=== PATIENT | male | born 1955 | race Caucasian/White ===

== ENCOUNTER 2021-01-28 09:00 | Outpatient (RCR) | payer OTHER, SELFPAY ==
--- NOTE | 2021-01-16 14:33 | PT.OIE ---
Current Diagnoses Dizziness and giddiness (01/16/21) Visit Care Team Role Provider Type Sudeep Beckham MD Attending Provider Physician Referring Provider Specialty: Ear, Nose, Throat Address: [address] [place] [address], [id number] Email: [email or web address] Physical Therapy Initial Evaluation PT-OP-A Visit Information Start: 01/14/21 15:37 Freq: Status: Active Protocol: Document 01/16/21 09:02 MB (Rec: 01/16/21 09:20 MB [id number]) Out-Patient Physical Therapy Visit Information Visit Information Visit Type Initial Evaluation Visit Note Select Visit Start Time 09:02 Visit Stop Time 09:45 Total Visit Minutes 43 Visit Number 1 Evaluation Information Evaluation Date 01/16/21 PT-OP-B Current Condition Start: 01/14/21 15:37 Freq: Status: Active Protocol: Document 01/16/21 09:02 MB (Rec: 01/16/21 09:20 MB [id number]) Current Condition History of Current Condition Onset Date 5 years ago Current Complaints Dizzinesss and hearing loss History of Current Condition Pt states that his hearing has been degrading over the last 5 years. He has decreased hearing and tinnitus in his left ear. He had two brain MRIs and a neck MRI. He reports they were both negative as far as tumor and blood flow. Pt has had four dizzy spells in the last 8 months. Dizzy spells are a few minutes to a few hours. He cannot relate to activities. He is doing a lot of yard work. He does modified P90X exercises. He is not doing a lot of sit ups. Pt reports that he noticed the dizziness 9 months ago. Pt denies pain. 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 PMH includes: tumor removed from top left shoulder, laparascopy left shoulder, prostatectomy d/t prostate CA, and tonsils removed. Pt reports: allergies and no worse dizziness with that, some back pain and possible right elbow issue, stiff neck, some overhead lifting, chiropractic treatment with high velocity manipulations to the neck, back and hips. Pt denies: numbness and tingling, vision changes, ear pressure, history of concussion, anemia and B12 deficiency, weakness, trouble swallowing, eye pressure, jaw problmes. Pt is going to see a neurologist in February about foci found on the MRI. Pt reports white noise, high pitch ringing and pulsating in left ear. Pt has a history of epistaxis, assymmetrical sensorineural hearing loss. Treatment Goals Patient/Caregiver Goals To see how PT can be helpful for his symptoms PT-OP-C Subjective Start: 01/14/21 15:37 Freq: Status: Active Protocol: Document 01/16/21 09:02 MB (Rec: 01/16/21 09:20 MB [id number]) OP-PT Subjective Patient Comments Patient Comments See history of current condition PT-OP-J Posture/Palpation/Skin Start: 01/14/21 15:37 Freq: Status: Active Protocol: Document 01/16/21 09:02 MB (Rec: 01/16/21 14:32 MB [id number]) Posture Evaluation Comments Posture Comments Standing posture: elevated and rounded shoulders, decreased thoracic and lumbar curvature, right shoulder higher than the left, pt stands with head resting in 3 deg right SB and 3 deg left rotation of cervical spine Palpation Assessment Location Anterior and posterior neck Palpation Details Increased tension left greater than right SCM and upper traps, levator PT-OP-K Range of Motion Start: 01/14/21 15:37 Freq: Status: Active Protocol: Document 01/16/21 09:02 MB (Rec: 01/16/21 14:32 MB [id number]) Cervical Spine Range of Motion Cervical Spine Active Testing Position Standing Flexion 50 Extension 36 Rotation Left 35 Rotation Right 60 Shoulder Goniometric Range of Motion Shoulder ROM Limitations Comments B active shoulder flexion is normal PT-OP-O Vestibular Start: 01/14/21 15:37 Freq: Status: Active Protocol: Document 01/16/21 09:02 MB (Rec: 01/16/21 14:32 MB [id number]) Vestibular Assessment Visual Testing Smooth Pursuits Horizontal Normal Smooth Pursuits Vertical Normal Saccades Horizontal Normal Saccades Vertical Normal Gaze Evoked Nystagmus With Fixation Negative Thrust Head Positive Bilateral Convergence Test Impaired Spontaneous Nystagmus Negative Positional Testing Roberto-Hallpike Negative Left,Negative Right PT-OP-Q Treatments Start: 01/14/21 15:37 Freq: Status: Active Protocol: Document 01/16/21 09:02 MB (Rec: 01/16/21 14:18 MB [id number]) Self-Care/Home Management Treatment Education Patient Education Body Mechanics,Posture Other Education Initial explanation of reasons for his symptoms after PT eval findings including: possible unstable vestibular lesion such as Meniere's, cervicogenic components, VOR hypofunction. Ed pt in increasing non-caffeinated fluid intake in setting of his symptoms and hypotension, proper sleeping position including use of pillow support and towel roll for cervical support, log roll. Ed in PT course from here: further VOR testing, balance testing, postural training and work. PT-OP-T Assessment and Plan Start: 01/14/21 15:37 Freq: Status: Active Protocol: Document 01/16/21 09:02 MB (Rec: 01/16/21 14:32 MB [id number]) Physical Therapy Assessment Rehab Potential Rehabilitation Potential Fair Evaluation Complexity Number of Personal Factors/Comorbidities 1-2 Number of Body Systems Impaired 1-2 Clinical Presentation at Evaluation Evolving Impairments Impairments Balance,Coordination,Gait, Posture,ROM,Soft Tissue Mobility,Vestibular Goals 2 Computer Tester Goal (LTG) Pt will perform progressive exercises with I including VOR , postural, balance, ROM and strengthening exercises to improve cervical ROM, VOR and balance by 03/18/21. LTG Duration 8 weeks 1 Detention Goal (LTG) Pt will perform WNLs on a standardized balance test to decrease fall risk and allow pt to perform safe mountaineering by 03/18/21. LTG Duration 8 weeks Assessment Summary Assessment Pt is a 65 y/o male presenting with reports of intermittent dizziness, tinnitus, hearing loss and imbalance. His presentation may include possible unstable vestibular lesion such as Meniere's and cervicogenic components to symptoms d/t increased cervical tension and decreased cervical ROM. Also, his BP is low and this could contribute to some symptoms as well. BPPV and orthostatic assessments were negative with BP and HR in LUE: supine 106/ 67, 51; standing 103/68, 49; standing 1' 106/68. He presents with normal rapid supination and pronation B, normal pupil constriction to pen light B, some trouble with rapid toe tap across opposite foot that could be related to wearing jeans, normal smile movement of face and tight thoracic spine. He will benefit from PT for further VOR and balance testing and training, postural training including breathing exercises, flexibility and manual work and other self-care and education as needed. PT feels that his presentation is multi -factorial. He will bring in brain and cervical MRI reports in future treatment dates. PT is curious about these since he says he has follow-up with neurologist about findings of foci. Physical Therapy Plan Frequency and Duration Frequency of Treatment 1-2x/wk Duration of Treatment 8 weeks Plan of Care Start Date 01/16/21 Plan of Care End Date 03/18/21 Therapeutic Interventions Therapeutic Interventions Balance Training,Canalithic Repositioning,Coordination Training,Gait Training,Home Exercise Program,Joint Mobilizations,Manual Therapy, Neuromuscular Re-education, Patient/Caregiver Education, Self-Care/Home Management, Sensory Integration,Soft Tissue Mobilization,Taping, Therapeutic Activities, Therapeutic Exercises, Vestibular Rehabilitation Modalities Cold Pack/Ice Massage,Hot Packs Next Visit Focus/Plan Next Note Type Treatment Note Next Visit Plan Assess VOR via DVA test, balance testing, start postural training
--- NOTE | 2021-01-16 14:33 | PT.OPPOC ---
Physical, Occupational & Speech Therapy At [facility] Current Diagnoses Dizziness and giddiness (01/16/21) Visit Care Team Role Provider Type Sudeep Beckham MD Attending Provider Physician Referring Provider Specialty: Ear, Nose, Throat Address: [address] [place] [address], [id number] Email: [email or web address] Plan Of Care PT-OP-T Assessment and Plan Start: 01/14/21 15:37 Freq: Status: Active Protocol: Document 01/16/21 09:02 MB (Rec: 01/16/21 14:32 MB [id number]) Physical Therapy Assessment Rehab Potential Rehabilitation Potential Fair Evaluation Complexity Number of Personal Factors/Comorbidities 1-2 Number of Body Systems Impaired 1-2 Clinical Presentation at Evaluation Evolving Impairments Impairments Balance,Coordination,Gait, Posture,ROM,Soft Tissue Mobility,Vestibular Goals 2 Telemetry Tech Goal (LTG) Pt will perform progressive exercises with I including VOR , postural, balance, ROM and strengthening exercises to improve cervical ROM, VOR and balance by 03/18/21. LTG Duration 8 weeks 1 Halfway Goal (LTG) Pt will perform WNLs on a standardized balance test to decrease fall risk and allow pt to perform safe mountaineering by 03/18/21. LTG Duration 8 weeks Assessment Summary Assessment Pt is a 65 y/o male presenting with reports of intermittent dizziness, tinnitus, hearing loss and imbalance. His presentation may include possible unstable vestibular lesion such as Meniere's and cervicogenic components to symptoms d/t increased cervical tension and decreased cervical ROM. Also, his BP is low and this could contribute to some symptoms as well. BPPV and orthostatic assessments were negative with BP and HR in LUE: supine 106/ 67, 51; standing 103/68, 49; standing 1' 106/68. He presents with normal rapid supination and pronation B, normal pupil constriction to pen light B, some trouble with rapid toe tap across opposite foot that could be related to wearing jeans, normal smile movement of face and tight thoracic spine. He will benefit from PT for further VOR and balance testing and training, postural training including breathing exercises, flexibility and manual work and other self-care and education as needed. PT feels that his presentation is multi -factorial. He will bring in brain and cervical MRI reports in future treatment dates. PT is curious about these since he says he has follow-up with neurologist about findings of foci. Physical Therapy Plan Frequency and Duration Frequency of Treatment 1-2x/wk Duration of Treatment 8 weeks Plan of Care Start Date 01/16/21 Plan of Care End Date 03/18/21 Therapeutic Interventions Therapeutic Interventions Balance Training,Canalithic Repositioning,Coordination Training,Gait Training,Home Exercise Program,Joint Mobilizations,Manual Therapy, Neuromuscular Re-education, Patient/Caregiver Education, Self-Care/Home Management, Sensory Integration,Soft Tissue Mobilization,Taping, Therapeutic Activities, Therapeutic Exercises, Vestibular Rehabilitation Modalities Cold Pack/Ice Massage,Hot Packs Next Visit Focus/Plan Next Note Type Treatment Note Next Visit Plan Assess VOR via DVA test, balance testing, start postural training Plan of Care Dates Plan of Care Start Date 01/16/21 Plan of Care End Date 03/18/21 Electronically Signed by: Carole Poole PT 01/16/21 3514 Please Sign and Return: I have reviewed this Plan of Care and certify that the skilled therapy services above are required to meet the patient?s needs. Physician Signature Date Printed Name and Credentials Clinical Instructor Signature Printed Name and Credentials
--- OUTSIDE RECORDS SUMMARY | 2021-01-17 08:34 | XMS_ITS | Referral Summary ---
:1955 Author Organization [facility] Address [address] [place] [id number] Care Team Providers Name Role Phone Pcp, Selected Primary Care Provider Unavailable Reason for Referral Consultation (Routine) Status Reason Specialty Diagnoses / Referred By Referred To Procedures Contact Contact Authorized Specialty Physical Diagnoses Dizziness Epistaxis Sudeep Beckham [place] [facility] Santos Rivera MD [facility] Required [address] [place], [place] [address] [address] [place] [phone] Phone: Electronically signed by Sudeep Beckham MD atPhysical Therapy (Routine) Status Reason Specialty Diagnoses / Referred By Referred To Procedures Contact Contact Authorized Diagnoses D[facility] vestibular rehab PHYSICAL THERAPY & [address] [place] [address] REHABILITATION [place], [place] [address] [facility] [place] [address] [place], [place] Phone: [phone] Phone: Electronically signed by Sudeep Beckham MD at Reason for Visit Reason Comments Epistaxis (Nose Bleed) Dizziness Encounter Details Date Type Department Care Team Description 12/09/2020 Office Visit [facility] Sudeep Beckham Dizziness ( Primary Dx); [facility] Ear MD Nicole Epistaxis; Nose and Throat [facility] Asymmetrical sensorineural hearing loss; [place], [place] Left-sided tinnitus [address] [address] [address] [phone] [place], [place] [phone] (Fax) [phone] Allergies Active Allergy Reactions Severity Noted Date Comments Sulfa (Sulfonamide Antibiotics) Shortness of breath High Redness documented as of this encounter (statuses as of 01/14/2021) Medications No known medicationsdocumented as of this encounter (statuses as of 01/14/2021) Active Problems No known active problemsdocumented as of this encounter (statuses as of 01/14/2021) Social History Tobacco Use Types Packs/Day Years Used Date Never Smoker Smokeless Tobacco: Never Used Alcohol Use Drinks/Week oz/Week Comments Yes Alcohol Habits Answer Date Recorded How often do you have a drink containing 4 or more times a w [place] 09/17/2020 alcohol? How many drinks containing alcohol do you have 1 or 2 09/17/2020 on a typical day when you are drinking? How often do you have six or more drinks on one Not asked 09/17/2020 occasion? Sex Assigned at Date Recorded Not on file Job Start Date Occupation Industry Not on file Not on file Not on file documented as of this encounter Last Filed Vital Signs Vital Sign Reading Time Taken Comments Blood Pressure 110/64 12/09/2020 2:57 PM PDT Pulse 52 12/09/2020 2:59 pt states he's an PM PDT occasional runne r Temperature 37.1 ??C (98.7 ??F) 12/09/2020 2:57 PM PDT Respiratory Rate - - Oxygen Saturation 99% 12/09/2020 2:57 PM PDT Inhaled Oxygen - - Concentration Weight 78 kg (172 lb) 12/09/2020 2:57 PM PDT Height 182.9 cm (6' 0.01) 12/09/2020 2:57 PM PDT Body Mass Index 23.32 12/09/2020 2:57 PM PDT documented in this encounter Progress Notes Sudeep Beckham MD - 12/09/2020 3:00 PM PDT Chief Complaint Patient presents with ??? Epistaxis (Nose Bleed) ??? Dizziness 12/09/20: Patient returns for follow-up after right septal cauterization on 10/08, a few brief episodes of mild bleeding within the first 2 weeks, none since, seems to be healed. Possibly a third episode of imbalance, possible vertigo but very difficult for him to describe, no cyst he thinks to lighthe adedness with imbalance, though can last a few hours. No headache at the time, evidently neurology evaluation scheduled in February. PCP ordered MRI, MRA neck and brain from 10/12, reports reviewed for each, all normal, with images from the MRI reviewed, normal including clear IACs. He is debating whether he wants to proceed with vestibular therapy, remains extremely fit and active. Overall feels his balance just is not as good as it used to be. 10/08/20: Patient returns for planned right septal cautery, no interval epistaxis but chronically recurrent in the past. Balance not completely normal, evidently PCP decided to order an MRI which we had discussed last visit, I asked him to make sure it is performed with contrast to be most helpful regarding his progressive hearing loss, although negative in 2018. 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 Outside records including otolaryngology clinic visit 12/15/2017 reviewed, at that point 6 months of left- sided hearing loss and occasional left tinnitus, eventually leadingto brain MRI 12/29/2017 report normal. No sudden change at any point, progressively a harder time onthe left side, more recent audiogram shows marked asymmetry from 08/19/2020 on the left, speech discrimination previously normal in 2018, now 24%. Socially becoming more of an issue. Few episodes of dizziness, no obvious vertigo, one 5 months ago, one 1 week ago, felt better lying down, no syncopeor obvious hearing change at the time or exacerbation of tinnitus. Occasionally the tinnitus on theleft is pulsatile. No other neurologic symptoms. No obvious correlation to salt intake. Also complains of intermittent right-sided epistaxis extremely chronically, history of at least cautery once in the past. No other ENT complaints. Review of Systems Review of Systems Constitutional: Negative. HENT: Positive for hearing loss and nosebleeds. Eyes: Negative. Respiratory: Negative. Cardiovascular: Negative. Gastrointestinal: Negative. Endocrine: Negative. Genitourinary: Negative. Musculoskeletal: Negative. Skin: Negative. Allergic/Immunologic: Negative. Neurological: Positive for dizziness. Hematological: Negative. Psychiatric/Behavioral: Negative. Past Medical History Past Medical History: Diagnosis Date ??? Cancer (CMS/HCC) Prostate ??? High cholesterol Past Surgical History Past Surgical History: Procedure Laterality Date ??? PROSTATECTOMY 2012 ??? SHOULDER SURGERY Left 2005 Family History Family History Problem Relation Age of Onset ??? Prostate cancer Father ??? Prostate cancer Brother ??? Prostate cancer Brother ??? Lymphoma Brother Social History Haile Galarza reports that he has never smoked. He has never used smokeless tobacco. He reports current alcohol use. Medications No current outpatient medications on file prior to visit. No current facility-administered medications on file prior to visit. Allergies Allergies Allergen Reactions ??? Sulfa (Sulfonamide Antibiotics) Shortness of breath Redness Examination: Vitals: 12/09/20 1459 BP: Pulse: (!) 52 Temp: SpO2: CONSTITUTION: General appearance:Well developed and groomed, well nourished. No apparent acute or chronic distress. Ability to communicate: normal. EYES: Ocular Motility: gaze appears conjugate in all positions; no evident nystagmus. EAR, NOSE, MOUTH AND THROAT: Pinnas and External Nose: Normal. Hearing: Conversational speech rarely or never misunderstands words. Nasal Interior: Normal septum, turbinates and mucosa no obvious vessel visible on the right, some scar consistent with prior cautery, no old or new blood seen NEUROLOGIC: Level of consciousness: awake and alert. Orientation: Normal. Mood and affect: normal and appropriate to the situation. Assessment/Plan: 1. Dizziness 2. Epistaxis 3. Asymmetrical sensorineural hearing loss 4. Left-sided tinnitus Good news MRI/MRAs all normal, reassuring but still do not have an answer for his at least vague imbalance, possible recurrent vertigo although not severe. Neurology evaluation reasonable although maybe entirely normal. Pros and cons of vestibular therapy reviewed, after extensive discussion he would like to proceed. He will call with recurrent episodes that may correspond with vertigo, may be a candidate for VNG or further testing in the future. documented in this encounter Miscellaneous Notes Addendum Note - Mavis Olsen RN - 12/09/2020 3:00 PM PDT Addended by: MAVIS OLSEN on: 01/13/2021 04:25 PM Modules accepted: Orders documented in this encounter Plan of Treatment Upcoming Encounters Date Type Specialty Care Team Description 02/28/2021 Office Visit Neurology Jason Glover M [address] [place], [place] [phone] Scheduled Referrals Name Type Priority Associated Order Schedule Diagnoses XTRNL Referral to Outpatient Referral Routine Dizziness 1 Occurrences Physical Therapy Epistaxis starting until 2 documented as of this encounter Visit Diagnoses Diagnosis Dizziness - Primary Dizziness and giddiness Epistaxis Asymmetrical sensorineural hearing loss Sensorineural hearing loss, asymmetrical Left-sided tinnitus Unspecified tinnitus documented in this encounter documented as of this encounter Advance Directives Documents on File Type Date Recorded 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
--- NOTE | 2021-01-23 13:22 | PT.OTN ---
Current Diagnoses Dizziness and giddiness (01/23/21) Physical Therapy Treatment Note PT-OP-A Visit Information Start: 01/14/21 15:37 Freq: Status: Active Protocol: Document 01/23/21 09:02 MB (Rec: 01/23/21 09:44 MB [id number]) Out-Patient Physical Therapy Visit Information Visit Information Visit Type Treatment Note Visit Note Select Visit Start Time 09:02 Visit Stop Time 09:45 Total Visit Minutes 43 Visit Number 2 PT-OP-B Current Condition Start: 01/14/21 15:37 Freq: Status: Active Protocol: Document 01/16/21 09:02 MB (Rec: 01/16/21 09:20 MB [id number]) Current Condition History of Current Condition Onset Date 5 years ago Current Complaints Dizzinesss and hearing loss History of Current Condition Pt states that his hearing has been degrading over the last 5 years. He has decreased hearing and tinnitus in his left ear. He had two brain MRIs and a neck MRI. He reports they were both negative as far as tumor and blood flow. Pt has had four dizzy spells in the last 8 months. Dizzy spells are a few minutes to a few hours. He cannot relate to activities. He is doing a lot of yard work. He does modified P90X exercises. He is not doing a lot of sit ups. Pt reports that he noticed the dizziness 9 months ago. Pt denies pain. 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 PMH includes: tumor removed from top left shoulder, laparascopy left shoulder, prostatectomy d/t prostate CA, and tonsils removed. Pt reports: allergies and no worse dizziness with that, some back pain and possible right elbow issue, stiff neck, some overhead lifting, chiropractic treatment with high velocity manipulations to the neck, back and hips. Pt denies: numbness and tingling, vision changes, ear pressure, history of concussion, anemia and B12 deficiency, weakness, trouble swallowing, eye pressure, jaw problmes. Pt is going to see a neurologist in February about foci found on the MRI. Pt reports white noise, high pitch ringing and pulsating in left ear. Pt has a history of epistaxis, assymmetrical sensorineural hearing loss. Treatment Goals Patient/Caregiver Goals To see how PT can be helpful for his symptoms PT-OP-C Subjective Start: 01/14/21 15:37 Freq: Status: Active Protocol: Document 01/23/21 09:02 MB (Rec: 01/23/21 09:44 MB [id number]) OP-PT Subjective Patient Comments Patient Comments Pt states that he is open minded about treatment and he brings in brain and neck MRI/ MRA results. PT-OP-J Posture/Palpation/Skin Start: 01/14/21 15:37 Freq: Status: Active Protocol: Document 01/16/21 09:02 MB (Rec: 01/16/21 14:32 MB [id number]) Posture Evaluation Comments Posture Comments Standing posture: elevated and rounded shoulders, decreased thoracic and lumbar curvature, right shoulder higher than the left, pt stands with head resting in 3 deg right SB and 3 deg left rotation of cervical spine Palpation Assessment Location Anterior and posterior neck Palpation Details Increased tension left greater than right SCM and upper traps, levator PT-OP-K Range of Motion Start: 01/14/21 15:37 Freq: Status: Active Protocol: Document 01/16/21 09:02 MB (Rec: 01/16/21 14:32 MB [id number]) Cervical Spine Range of Motion Cervical Spine Active Testing Position Standing Flexion 50 Extension 36 Rotation Left 35 Rotation Right 60 Shoulder Goniometric Range of Motion Shoulder ROM Limitations Comments B active shoulder flexion is normal PT-OP-O Vestibular Start: 01/14/21 15:37 Freq: Status: Active Protocol: Document 01/16/21 09:02 MB (Rec: 01/16/21 14:32 MB [id number]) Vestibular Assessment Visual Testing Smooth Pursuits Horizontal Normal Smooth Pursuits Vertical Normal Saccades Horizontal Normal Saccades Vertical Normal Gaze Evoked Nystagmus With Fixation Negative Thrust Head Positive Bilateral Convergence Test Impaired Spontaneous Nystagmus Negative Positional Testing [place]-Hallpike Negative Left,Negative Right PT-OP-Q Treatments Start: 01/14/21 15:37 Freq: Status: Active Protocol: Document 01/23/21 09:02 MB (Rec: 01/23/21 09:44 MB [id number]) Neuro Re-Education Treatment Balance Activities 1 Comments FGA score is 30/30 Vestibular Rehabilitation DVA VOR testing and exercise Comments Two line difference with reading eye chart with head still compared to vertical and horizontal head turns With exercise eye chart: horizontal and vertical head turns looking at second line from bottom E: cues to only move 60 deg with right and left rotation (30 deg each direction) to keep range of progressive lenses and to engage VOR, same cues for small vertical head turns: cues for neck control and speed. Sitting, standing, standing Romberg behind chair. Pt performs several sets both directions for each body position and up to 1-2 minutes , progressed to partial tandem and this is most challenging for pt and he will perform this at home PT-OP-T Assessment and Plan Start: 01/14/21 15:37 Freq: Status: Active Protocol: Document 01/23/21 09:02 MB (Rec: 01/23/21 09:44 MB [id number]) Physical Therapy Assessment Rehab Potential Rehabilitation Potential Fair Evaluation Complexity Number of Personal Factors/Comorbidities 1-2 Number of Body Systems Impaired 1-2 Clinical Presentation at Evaluation Evolving Impairments Impairments Balance,Coordination,Gait, Posture,ROM,Soft Tissue Mobility,Vestibular Goals 2 Half-Way Goal (LTG) Pt will perform progressive exercises with I including VOR , postural, balance, ROM and strengthening exercises to improve cervical ROM, VOR and balance by 03/18/21. LTG Duration 8 weeks 1 Half-Way Goal (LTG) Pt will perform WNLs on a standardized balance test to decrease fall risk and allow pt to perform safe mountaineering by 03/18/21. LTG Duration 8 weeks Assessment Summary Assessment PT reviews reports and brain w /wo with few nonspecific FLAIR /T2 hyperintense foci in the subcortical and periventricular white matter, likely chronic vascular ischemic changes. FGA score is normal and pt reports trouble with more technical foot work with mountaineering that he feels is related to his progressive lenses and vision changes and he will start wearing his old glasses for these activities. Did add VOR/ balance exercise today to strengthen his vestibular system. He would like some postural and BOSU exercises and will provide these in future treatments. Overall, PT con't to feel that unstable vestibular lesion such as Meniere's is pt's clinical presentation. He denies extremity weakness and paresthesias and vision changes. Physical Therapy Plan Frequency and Duration Frequency of Treatment 1-2x/wk Duration of Treatment 8 weeks Plan of Care Start Date 01/16/21 Plan of Care End Date 03/18/21 Therapeutic Interventions Therapeutic Interventions Balance Training,Canalithic Repositioning,Coordination Training,Gait Training,Home Exercise Program,Joint Mobilizations,Manual Therapy, Neuromuscular Re-education, Patient/Caregiver Education, Self-Care/Home Management, Sensory Integration,Soft Tissue Mobilization,Taping, Therapeutic Activities, Therapeutic Exercises, Vestibular Rehabilitation Modalities Cold Pack/Ice Massage,Hot Packs Next Visit Focus/Plan Next Note Type Treatment Note Next Visit Plan Bosu ball exercises and theraband scapular retraction, shoulder ER
--- NOTE | 2021-01-28 12:14 | PT.OTN ---
Current Diagnoses Dizziness and giddiness (01/28/21) Physical Therapy Treatment Note PT-OP-A Visit Information Start: 01/14/21 15:37 Freq: Status: Active Protocol: Document 01/28/21 09:03 MB (Rec: 01/28/21 09:47 MB [id number]) Out-Patient Physical Therapy Visit Information Visit Information Visit Type Treatment Note Visit Note Select Visit Start Time 09:03 Visit Stop Time 09:45 Total Visit Minutes 42 Visit Number 3 PT-OP-B Current Condition Start: 01/14/21 15:37 Freq: Status: Active Protocol: Document 01/16/21 09:02 MB (Rec: 01/16/21 09:20 MB [id number]) Current Condition History of Current Condition Onset Date 5 years ago Current Complaints Dizzinesss and hearing loss History of Current Condition Pt states that his hearing has been degrading over the last 5 years. He has decreased hearing and tinnitus in his left ear. He had two brain MRIs and a neck MRI. He reports they were both negative as far as tumor and blood flow. Pt has had four dizzy spells in the last 8 months. Dizzy spells are a few minutes to a few hours. He cannot relate to activities. He is doing a lot of yard work. He does modified P90X exercises. He is not doing a lot of sit ups. Pt reports that he noticed the dizziness 9 months ago. Pt denies pain. 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 PMH includes: tumor removed from top left shoulder, laparascopy left shoulder, prostatectomy d/t prostate CA, and tonsils removed. Pt reports: allergies and no worse dizziness with that, some back pain and possible right elbow issue, stiff neck, some overhead lifting, chiropractic treatment with high velocity manipulations to the neck, back and hips. Pt denies: numbness and tingling, vision changes, ear pressure, history of concussion, anemia and B12 deficiency, weakness, trouble swallowing, eye pressure, jaw problmes. Pt is going to see a neurologist in February about foci found on the MRI. Pt reports white noise, high pitch ringing and pulsating in left ear. Pt has a history of epistaxis, assymmetrical sensorineural hearing loss. Treatment Goals Patient/Caregiver Goals To see how PT can be helpful for his symptoms PT-OP-C Subjective Start: 01/14/21 15:37 Freq: Status: Active Protocol: Document 01/28/21 09:03 MB (Rec: 01/28/21 09:47 MB [id number]) OP-PT Subjective Patient Comments Patient Comments Pt states that he changed glasses and the VOR exercise was easier. PT-OP-J Posture/Palpation/Skin Start: 01/14/21 15:37 Freq: Status: Active Protocol: Document 01/16/21 09:02 MB (Rec: 01/16/21 14:32 MB [id number]) Posture Evaluation Comments Posture Comments Standing posture: elevated and rounded shoulders, decreased thoracic and lumbar curvature, right shoulder higher than the left, pt stands with head resting in 3 deg right SB and 3 deg left rotation of cervical spine Palpation Assessment Location Anterior and posterior neck Palpation Details Increased tension left greater than right SCM and upper traps, levator PT-OP-K Range of Motion Start: 01/14/21 15:37 Freq: Status: Active Protocol: Document 01/16/21 09:02 MB (Rec: 01/16/21 14:32 MB [id number]) Cervical Spine Range of Motion Cervical Spine Active Testing Position Standing Flexion 50 Extension 36 Rotation Left 35 Rotation Right 60 Shoulder Goniometric Range of Motion Shoulder ROM Limitations Comments B active shoulder flexion is normal PT-OP-O Vestibular Start: 01/14/21 15:37 Freq: Status: Active Protocol: Document 01/16/21 09:02 MB (Rec: 01/16/21 14:32 MB [id number]) Vestibular Assessment Visual Testing Smooth Pursuits Horizontal Normal Smooth Pursuits Vertical Normal Saccades Horizontal Normal Saccades Vertical Normal Gaze Evoked Nystagmus With Fixation Negative Thrust Head Positive Bilateral Convergence Test Impaired Spontaneous Nystagmus Negative Positional Testing [place]-Hallpike Negative Left,Negative Right PT-OP-Q Treatments Start: 01/14/21 15:37 Freq: Status: Active Protocol: Document 01/28/21 09:03 MB (Rec: 01/28/21 09:47 MB [id number]) Therapeutic Exercises Supine Exercises Pect stretch on ball and foam roller Comments 65 cm ball and thoracic roller Core progresesion Supine Exercise Name Abdominal drawing in, lumbar rotation, HS, mini march Side bilateral Comments 10 reps Standing Exercises Bosu exercises Side bilateral Comments Ball on both sides--UE support , static standing, SLS, mini squats ER and row with bands Side bilateral Equipment Used Level 2 and 3 bands Comments 5 reps each exercise Self-Care/Home Management Treatment Education Other Education PT and pt agree that there are no further OPPT needs at this time and that he will con't with VOR, postural and balance exercises. Ed pt that PT will send this note to Dr. Beckham and recommend follow-up with Dr. Beckham after he is cleared by neurologist. PT's impression is unstable vestibular lesion such as Meniere's and PT provides [employer] vestibular special interest group handout to patient. PT-OP-T Assessment and Plan Start: 01/14/21 15:37 Freq: Status: Active Protocol: Document 01/28/21 09:03 MB (Rec: 01/28/21 09:47 MB [id number]) Physical Therapy Assessment Rehab Potential Rehabilitation Potential Fair Evaluation Complexity Number of Personal Factors/Comorbidities 1-2 Number of Body Systems Impaired 1-2 Clinical Presentation at Evaluation Evolving Impairments Impairments Balance,Coordination,Gait, Posture,ROM,Soft Tissue Mobility,Vestibular Goals 2 Document Processor Goal (LTG) Pt will perform progressive exercises with I including VOR , postural, balance, ROM and strengthening exercises to improve cervical ROM, VOR and balance by 03/18/21. 01/28/21: Met: pt is performing VOR, balance, strengthening and postural exercises LTG Duration Met 1 Document Processor Goal (LTG) Pt will perform WNLs on a standardized balance test to decrease fall risk and allow pt to perform safe mountaineering by 03/18/21. 01/28/21: Pt performed WNLs on FGA previous treatment date. LTG Duration Met Assessment Summary Assessment Pt has met PT goals including balance and performance of progressive HEP. He does not need further OPPT at this time . PT favors unstable vestibular lesion such as Meniere's and recommends follow-up with Dr. Beckham after he is cleared by neurologist next month. Physical Therapy Plan Frequency and Duration Frequency of Treatment 1-2x/wk Duration of Treatment 8 weeks Plan of Care Start Date 01/16/21 Plan of Care End Date 03/18/21 Therapeutic Interventions Therapeutic Interventions Balance Training,Canalithic Repositioning,Coordination Training,Gait Training,Home Exercise Program,Joint Mobilizations,Manual Therapy, Neuromuscular Re-education, Patient/Caregiver Education, Self-Care/Home Management, Sensory Integration,Soft Tissue Mobilization,Taping, Therapeutic Activities, Therapeutic Exercises, Vestibular Rehabilitation Modalities Cold Pack/Ice Massage,Hot Packs
== END 2021-01-28 13:09 | disposition home or self-care (01) ==
LOC: PHYS 09:00
PROVIDERS: Referring Provider Otolaryngology; Visit Provider Otolaryngology
DX: R42 Dizziness and giddiness (principal)
CPT/HCPCS: 97110; 97112; 97162; 97535

== ENCOUNTER → 2022-10-16 17:24 | Outpatient (CLI) | payer MEDICARE, OTHER, SELFPAY ==
--- NOTE | 2022-10-16 17:26 | DI.MRI.S_ITS ---
PROCEDURE: MR SHOULDER RT WO CON INDICATIONS: CHRONIC RT SHOULDER PAIN TECHNIQUE: Noncontrast oblique coronal T2 fast spin echo with fat saturation, oblique sagittal T1 spin echo and T2 fast spin echo with fat saturation, axial T1 spin echo and T2 fast spin echo with fat saturation through the shoulder. COMPARISON: [facility], CR, XR SHOULDER 2+ VIEWS RIGHT, 10/12/2022, 16:29. FINDINGS: Image quality: Excellent. Rotator cuff: There is [id number] grade tendinosis of the supraspinatus, infraspinatus, and subscapularis tendons. No full-thickness rotator cuff tendon tear or tendon retraction. Sagittal images demonstrate no rotator cuff muscle atrophy. Bones and bursae: No bone marrow contusions or fractures. Severe acromioclavicular and moderate joint degeneration. The acromion demonstrates conventional anatomy, without an os acromiale. No pathologic subacromial-subdeltoid or subcoracoid bursal fluid is present. Capsule and soft tissues: Degenerative labral fraying, most pronounced in superior labrum and inferior labrum. Moderate tendinosis of the long head of the biceps tendon, most severe in the intra-articular segment. The rotator interval appears irregular with fibrosis. The coracohumeral ligament is thickened. IMPRESSION: 1. Exrubyox-zz-bikx grade tendinosis of the rotator cuff tendons without full-thickness tendon tear. No rotator cuff muscle atrophy. 2. Severe acromioclavicular and moderate glenohumeral joint degeneration. 3. Degenerative labral fraying. 4. Moderate tendinosis of the long head of the biceps tendon. 5. Irregular rotator interval with fibrosis and mild thickening of the coracohumeral ligament. The findings are associated with adhesive capsulitis. Dictated by: Mateo Amaro M.D. on 10/19/2022 at 9:17 Approved by: Mateo Amaro M.D. on 10/19/2022 at 9:27
== END ==
PROVIDERS: Referring Provider Orthopaedic Surgery; Visit Provider Orthopaedic Surgery
DX: M19.011 Primary osteoarthritis, right shoulder (principal); M25.511 Pain in right shoulder
CPT/HCPCS: 73221